=== PATIENT | female | born 1990 | race Caucasian/White ===

== ENCOUNTER → 2016-06-11 | Outpatient (CLI) | payer OTHER | END | disposition home or self-care (01) | LOC: LAB.O 12:40 | PROVIDERS: ATTEND Surgery | DX: L05.01 Pilonidal cyst with abscess (principal) ==

== ENCOUNTER 2017-08-21 03:11 | Emergency (ER) | payer OTHER ==
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
[2017-08-21 04:41] VITALS: BP 140/96; TEMP 97.4; O2SAT 97
== END 2017-08-21 03:32 | disposition home or self-care (01) ==
LOC: ER 03:11
DX: G89.11 Acute pain due to trauma (principal); M25.512 Pain in left shoulder; Y04.2XXA Assault by strike against or bumped into by another person, initial encounter; Y92.9 Unspecified place or not applicable; Y99.0 Civilian activity done for income or pay